=== PATIENT | female | born 1945 | race American Indian/Alaskan Native ===

== ENCOUNTER 2017-10-18 06:17 | Inpatient (IN) | payer MEDICARE ==
[2017-10-04 13:31] VITALS: BMI 26.6
[2017-10-18] MEDS ORDERED: Bupivacaine-Epi 0.5%-1:200,000 PF Inj IJ ONE (07:37)
[2017-10-18] MEDS ORDERED: Sodium Chloride 0.9% 20 ML IV ONE (07:42)
[2017-10-18] MEDS ORDERED: ceFAZolin 1 gm in NS 2 GM/200 ML BAG IVPB ONE (07:42)
[2017-10-18] MEDS ORDERED: Midazolam 2 MG/2 ML VIAL ONE (08:12)
[2017-10-18] MEDS ORDERED: Propofol 10 mg/ml Inj (20 ML) ONE (08:14)
[2017-10-18] MEDS ORDERED: Rocuronium 10 mg/ml (5 ml) ONE (09:05)
--- NOTE | 2017-10-18 10:26 | PCM.OP ---
Operative Report - Operative Report Date of Surgery/Procedure: 10/18/17 Time of Surgery/Procedure: 10:23 Surgeon: katherine dent md Java Sql Developer: enma JACOB Anesthesia/Sedation: Gen with ET tube Pre-Operative Diagnosis: chronic pelvic pain. complete uterine prolapse / complete procedentia. Stage 4 cystocele. Urinary incontinence mixed Post-Operative Diagnosis: chronic pelvic pain. complete uterine prolapse / complete procedentia. Stage 4 cystocele. Urinary incontinence mixed Indication for Surgery: worsening prolpse uterus and bladder prolapse with urinary dysfunction Operative Findings: complete procedentia. Stage 4 cystocele. adhesions pelvic and bowel Procedure/Operation Description: Total robotic hysterectomy bilateral salpingooophorectomy. Uterosacroligament suspenssion. Colorhaphy anterior. Enterolysis. Diagnostic cystoscopy Estimated Blood Loss: 10 Blood Replaced: none Sponge/Instrument Count: count correct times 2 Drains: none Complications: none Specimen: uterus cervic tubes and ovaries. anterior vaginal wall
[2017-10-18] MEDS ORDERED: Oxycodone/Acetaminophen 5/325 mg Tab PO PRN (10:27)
[2017-10-18] MEDS ORDERED: Morphine 4 MG/ML VIAL IVP PRN (10:27)
[2017-10-18] MEDS ORDERED: Sodium Chloride 0.9% 1,000 ML IV SCH (10:30)
[2017-10-18] MEDS ORDERED: Neostigmine Methylsulfate 3mg/3ml Syringe IV ONE (10:31)
[2017-10-18] MEDS ORDERED: ePHEDrine 50 mg/ml Inj ONE (10:31)
[2017-10-18] MEDS: HYDROmorphone 0.5 mg/0.5 ml ISec IVP PRN ×2 (11:05→11:32)
[2017-10-18] MEDS ORDERED: Lactated Ringer's 1,000 ML IV ONE (11:50)
[2017-10-18] MEDS: ceFAZolin IV 1 gm in Dextrose 1 GM/50 ML BAG IVPB SCH (17:46)
[2017-10-19 01:57] VITALS: RESP 20
[2017-10-19] MEDS: ceFAZolin IV 1 gm in Dextrose 1 GM/50 ML BAG IVPB SCH (03:07)
[2017-10-19 07:43] LABS: HEMOGLOBIN 12.2 g/dL (11.0-16.0); MEAN CELL VOLUME 95.1 fL (81.0-99.0); MEAN CORPUSCULAR HEMOGLOBIN 32.5 pg (27.0-31.0); MEAN CORPUSCULAR HGB CONC 34.1 g/dL (33.0-37.0); MEAN PLATELET VOLUME 8.7 fL (7.2-11.7); RBC 3.77 Mil/uL (3.80-5.20); RED CELL DISTRIBUTION WIDTH 13.5 % (11.5-14.5); WHITE BLOOD COUNT 12.7 K/uL (4.8-10.8)
[2017-10-19 08:03] VITALS: TEMP 98.3; O2SAT 98
[2017-10-19 08:09] LABS: BLOOD UREA NITROGEN 8 mg/dL (7-17); CALCIUM 8.6 mg/dl (8.6-10.4); GFR AFRICAN-AMERICAN > 60; GFR NON-AFRICAN AMERICAN > 60
[2017-10-19 09:14] VITALS: BP 164/67; PULSE 57
[2017-10-19] MEDS ORDERED: Levothyroxine 75 MCG TAB PO SCH (10:00)
--- NOTE | 2017-10-19 10:07 | CP.PCM.PN ---
Subjective - Date & Time of Evaluation Date of Evaluation: 10/19/17 Time of Evaluation: 10:03 - Subjective Subjective: Patient states she has a little pain in the left lower side. Not too painful. She has voided, tolerating liquid diet, has been out of bed. Denies CP/SOB/ dizziness. Objective - Vital Signs/Intake and Output Vital Signs (last 24 hours): Temp Pulse Resp BP Pulse Ox 98.3 F 57 L 20 164/67 H 98 10/19/17 08:00 10/19/17 09:14 10/19/17 08:00 10/19/17 09:14 10/19/17 08:00 Intake and Output: 10/19/17 10/19/17 06:59 18:59 Intake Total 900 Output Total 950 Balance -50 - Medications Medications: Current Medications Amlodipine Besylate (Norvasc) 5 mg PO DAILY [facility] Last Admin: 10/19/17 09:14 Dose: 5 mg Sodium Chloride (Sodium Chloride 0.9%) 1,000 mls @ 75 mls/hr IV .[id number] [facility] Last Admin: 10/18/17 22:50 Dose: 75 mls/hr Latanoprost (Xalatan Opht) 0 ml OU HS [facility] Morphine Sulfate (Morphine) 4 mg IVP Q4H PRN PRN Reason: Pain, severe (8-10) Last Admin: 10/18/17 20:38 Dose: 4 mg Ondansetron HCl (Zofran Inj) 4 mg IVP ONCE PRN PRN Reason: Nausea/Vomiting Last Admin: 10/18/17 20:38 Dose: 4 mg Oxycodone/Acetaminophen (Percocet 5/325 Mg Tab) 2 tab PO Q4 PRN PRN Reason: Pain, moderate (4-7) Stop: 10/21/17 10:28 Rosuvastatin Calcium (Crestor) 10 mg PO HS ANDREW - Labs Labs: 10/19/17 07:35 10/19/17 07:35 - GI/Abdominal Exam Additional comments: soft, minimally tender, non distended Assessment and Plan (1) Uterine prolapse Assessment & Plan: POD#1 s/p robotic hysterectomy -d/c home today f/u 2 weeks rx percocet, instructed to take colace with medication keep incision sites clean and dry d/w DR. Asulin, agrees with above Status: Acute (2) Cystocele with uterine prolapse Status: Acute (3) Chronic pelvic pain in female Status: Acute (4) Urinary incontinence Status: Acute
[2017-10-19] MEDS ORDERED: Latanoprost 2.5 ml Opht Soln OU SCH (22:00)
== END 2017-10-19 14:08 | disposition home or self-care (01) | DRG 743 ==
LOC: C.SDS 06:17 → C.9S 10:27 → C.6T 14:43
PROVIDERS: ADMIT Obstetrics & Gynecology; ATTEND Obstetrics & Gynecology
PROC: 0UT77ZZ Resection of Bilateral Fallopian Tubes, Via Natural or Artificial Opening (ICD-10-PCS; 2017-10-18)
PROC: 0UT27ZZ Resection of Bilateral Ovaries, Via Natural or Artificial Opening (ICD-10-PCS; 2017-10-18)
PROC: 0UT97ZZ Resection of Uterus, Via Natural or Artificial Opening (ICD-10-PCS; principal; 2017-10-18 07:45)
DX: D25.9 Leiomyoma of uterus, unspecified (principal); N81.10 Cystocele, unspecified; R32 Unspecified urinary incontinence; K66.0 Peritoneal adhesions (postprocedural) (postinfection); N81.4 Uterovaginal prolapse, unspecified; N73.6 Female pelvic peritoneal adhesions (postinfective)